=== PATIENT | female | born 1950 | race Hispanic/Latino ===

== ENCOUNTER → 2021-12-04 | Outpatient (CLI) | payer MEDICARE | END | disposition home or self-care (01) | LOC: RAH 07:07 | PROVIDERS: ATTEND Internal Medicine Gastroenterology | DX: R68.81 Early satiety (principal); R63.4 Abnormal weight loss | CPT/HCPCS: 78264; A9541 ==

== ENCOUNTER → 2023-04-27 | Outpatient (CLI) | payer OTHER | END | disposition home or self-care (01) | LOC: RAH 09:14 | PROVIDERS: ATTEND Internal Medicine Cardiovascular Disease | DX: Z13.6 Encounter for screening for cardiovascular disorders (principal); I25.10 Atherosclerotic heart disease of native coronary artery without angina pectoris; K44.9 Diaphragmatic hernia without obstruction or gangrene; R93.1 Abnormal findings on diagnostic imaging of heart and coronary circulation; J47.9 Bronchiectasis, uncomplicated; J84.10 Pulmonary fibrosis, unspecified | CPT/HCPCS: 75571 ==

== ENCOUNTER → 2024-07-10 | Outpatient (CLI) | payer MEDICARE ==
--- NOTE | 2024-07-10 15:22 | HMCIMG ---
HIDA scan INDICATION: RUQ PAIN. TECHNIQUE: Patient was administered 7 mCi of technetium 99m Choletec IV and dynamic images of the abdomen were obtained over 2 hours. Patient was then given 1.2 mcg of CCK IV for gallbladder ejection fraction calculation. FINDINGS: There is rapid and homogeneous uptake of radiopharmaceutical by the liver, which shows normal size and shape. Activity in the gallbladder noted 15 minutes after injection of tracer. Normal hepatic clearance with activity in the small bowel. Gallbladder ejection fraction calculated at 93% (normal is > 35%). IMPRESSION: Normal ejection fraction. No evidence of gallbladder dyskinesia. No evidence of acute or chronic cholecystitis..
== END | disposition home or self-care (01) ==
LOC: RAH 10:43
PROVIDERS: ATTEND Internal Medicine Gastroenterology
DX: R10.11 Right upper quadrant pain (principal)
CPT/HCPCS: 78227; A9537